=== PATIENT | male | born 1950 | race Caucasian/White ===

== ENCOUNTER 2017-10-17 21:10 | Inpatient (IN) | payer MEDICARE, OTHER ==
[~2017-10-17] VITALS: Ht 177.8 cm; Wt 86.2 kg
[~2017-10-17 21:10] MED LIST: ALBU1.25 NEB; ASPI-515 PO; ATOR40TA78 PO; AZIT500T PO; CEFD300C37 PO; DIGO250T PO; HALO5TAB5 PO; HYDR20TA PO; HYDR25SU3 PO; IPRA3AMP NPPB; LACT1CAP24 PO; MIDO5TAB PO; POLY17PO5 PO; POTA20TA6 PO; QUET25TA PO; RIVA10TA PO; RIVA15TA PO; SERT100T5 PO
[2017-10-17] MEDS ORDERED: ALBUTEROL/IPRATROPIUM 2.5MG/0.5MG, 3 ML ONE (21:41)
[2017-10-17 21:48] LABS: BASOPHILS # (AUTO) 0.01 x10^3/uL (0-0.1); BASOPHILS % (AUTO) 0 % (0-1); EOSINOPHILS # (AUTO) 0.29 x10^3/uL (0-0.4); EOSINOPHILS % (AUTO) 3 % (1-7); LYMPHOCYTES # (AUTO) 1.37 x10^3/uL (1-3.4); LYMPHOCYTES % (AUTO) 14 % (22-44); MD NO; MEAN CORPUSCULAR HEMOGLOBIN 31.3 pg (27.5-34.5); MEAN CORPUSCULAR HGB CONC 33.5 g/dL (33.2-36.2); MEAN CORPUSCULAR VOLUME 93.6 fL (81-97); MEAN PLATELET VOLUME 6.6 fL (7.4-10.4); MONOCYTES # (AUTO) 0.58 x10^3/uL (0.2-0.8); MONOCYTES % (AUTO) 6 % (2-9); NEUTROPHILS # (AUTO) 7.58 x10^3/uL (1.8-6.8); NEUTROPHILS % (AUTO) 77 % (42-75); PLATELET COUNT 323 x10^3/uL (130-400); RED BLOOD COUNT 2.89 x10^6/uL (4.38-5.82); RED CELL DISTRIBUTION WIDTH 18.5 % (9.4-14.8)
[2017-10-17 21:57] LABS: ALANINE AMINOTRANSFERASE 45 U/L (12-78); ALBUMIN 2.7 g/dL (3.4-5.0); ANION GAP 7 mmol/L (5-15); CALCIUM 7.7 mg/dL (8.5-10.1); CHLORIDE 104 mmol/L (98-107); CREATININE 0.58 mg/dL (0.7-1.3)
[2017-10-17] MEDS ORDERED: ATOR40TA78 PO (22:00)
[2017-10-17] MEDS ORDERED: IPRA4AER PO (22:00)
[2017-10-17] MEDS ORDERED: POTA10TA6 PO (22:00)
[2017-10-17] MEDS ORDERED: QUET25TA5 PO (22:00)
[2017-10-17] MEDS ORDERED: RIVA10TA PO (22:00)
[2017-10-17] MEDS ORDERED: POLY17PO5 PO (22:00)
[2017-10-17] MEDS ORDERED: ALBU0.63 NEB (22:00)
[2017-10-17] MEDS ORDERED: LACT1CAP24 PO (22:00)
[2017-10-17] MEDS ORDERED: MIDO10TA PO (22:00)
[2017-10-17] MEDS ORDERED: HYDROCORTISONE PO (22:00)
[2017-10-17] MEDS ORDERED: ACET325T14 PO (22:00)
[2017-10-17] MEDS ORDERED: TUBE5VIA3 TP (22:00)
[2017-10-17] MEDS ORDERED: OMEP-110 PO (22:00)
[2017-10-17] MEDS ORDERED: DIGO250T12 PO (22:00)
[2017-10-17] MEDS ORDERED: ASPI-515 PO (22:00)
[2017-10-17 22:01] LABS: ALKALINE PHOSPHATASE 85 U/L (45-117); TOTAL PROTEIN 6.6 g/dL (6.4-8.2); TROPONIN I 0.046 ng/mL (0.000-0.045)
[2017-10-17] MEDS ORDERED: PIPERACILLIN/TAZO/PMX 3.375GM 50 ML ONE (22:19)
[2017-10-17] MEDS ORDERED: ASPIRIN 81 MG TABLET CHEW ONE (22:19)
[2017-10-17] MEDS ORDERED: ASPIRIN 81 MG TABLET CHEW PO ONE (22:30)
[2017-10-17] MEDS ORDERED: PIPERACILLIN/TAZO/PMX 3.375GM 50 ML IVPB ONE (22:30)
[2017-10-17] MEDS ORDERED: VANCOMYCIN PER PHARMACY IV ONE (22:30)
[2017-10-17] MEDS ORDERED: VANCOMYCIN 1,800 MG in SODIUM CHLORIDE 0.9% 250 ML IV ONE (22:30)
[2017-10-17] MEDS ORDERED: ONDANSETRON 2MG/ML, 2ML IVPush PRN (23:30)
[2017-10-18] MEDS ORDERED: ONDANSETRON ODT 4 MG PO PRN (01:00)
[2017-10-18 01:30] VITALS: BP 114/76
[2017-10-18] MEDS ORDERED: ALBUTEROL/IPRATROPIUM 2.5MG/0.5MG, 3 ML NPPB PRN ×2 (01:30→02:00)
[2017-10-18] MEDS ORDERED: VANCOMYCIN PER PHARMACY MC PRN (01:30)
[2017-10-18] MEDS: MIDODRINE 5 MG TABLET PO SCH ×4 (01:42→19:33)
[2017-10-18] MEDS: PIPERACILLIN/TAZO/PMX 4.5GM 100 ML IV SCH ×3 (01:42→17:33)
[2017-10-18] MEDS: FUROSEMIDE 20 MG/2 ML IV SCH ×3 (01:47→17:33)
[2017-10-18] MEDS: methylPREDNISolone SOD SUCC 40 MG/ML IV SCH ×2 (01:47→12:14)
[2017-10-18 02:03] VITALS: BP 109/78
[2017-10-18 02:19] LABS: TROPONIN I 0.062 ng/mL (0.000-0.045)
[2017-10-18 04:00] VITALS: BP 104/74
[2017-10-18 04:33] LABS: BASOPHILS # (AUTO) 0.02 x10^3/uL (0-0.1); BASOPHILS % (AUTO) 0 % (0-1); EOSINOPHILS # (AUTO) 0.14 x10^3/uL (0-0.4); EOSINOPHILS % (AUTO) 2 % (1-7); LYMPHOCYTES % (AUTO) 11 % (22-44); MD NO; MEAN CORPUSCULAR HEMOGLOBIN 31.2 pg (27.5-34.5); MEAN CORPUSCULAR HGB CONC 33.1 g/dL (33.2-36.2); MEAN CORPUSCULAR VOLUME 94.2 fL (81-97); MEAN PLATELET VOLUME 6.9 fL (7.4-10.4); MONOCYTES # (AUTO) 0.37 x10^3/uL (0.2-0.8); MONOCYTES % (AUTO) 4 % (2-9); NEUTROPHILS # (AUTO) 8.25 x10^3/uL (1.8-6.8); NEUTROPHILS % (AUTO) 83 % (42-75); PLATELET COUNT 320 x10^3/uL (130-400); RED CELL DISTRIBUTION WIDTH 17.9 % (9.4-14.8)
[2017-10-18 04:40] LABS: ANION GAP 6 mmol/L (5-15); CHLORIDE 106 mmol/L (98-107)
[2017-10-18 04:45] LABS: CREATININE 0.61 mg/dL (0.7-1.3); TROPONIN I 0.052 ng/mL (0.000-0.045)
[2017-10-18] MEDS ORDERED: PHARMACOKINETIC MONITORING MC PRN (06:00)
[2017-10-18] MEDS ORDERED: PHARMACOKINETIC CONSULTATION MC ONE (06:00)
[2017-10-18] MEDS: ALBUTEROL/IPRATROPIUM 2.5MG/0.5MG, 3 ML NPPB SCH ×4 (06:53→20:04)
[2017-10-18] MEDS ORDERED: ALBUTEROL/IPRATROPIUM 2.5MG/0.5MG, 3 ML NPPB SCH (07:00)
[2017-10-18] MEDS: POTASSIUM CHLORIDE 10 MEQ TABLET.ER PO SCH (09:00)
[2017-10-18] MEDS: POLYETHYLENE GLYCOL 17 GM PACKET PO SCH (09:00)
[2017-10-18] MEDS: RIVAROXABAN 10 MG TABLET PO SCH ×2 (09:00→19:33)
[2017-10-18] MEDS ORDERED: OMEPRAZOLE 20 MG CAPSULE.DR PO SCH (09:00)
[2017-10-18] MEDS: DIGOXIN 0.25 MG TABLET PO SCH (09:00)
[2017-10-18] MEDS: FAMOTIDINE 20 MG/2 ML IVPush SCH ×2 (09:42→20:27)
[2017-10-18] MEDS: VANCOMYCIN 1,800 MG in SODIUM CHLORIDE 0.9% 250 ML IV SCH (16:07)
[2017-10-18] MEDS: ATORVASTATIN 40 MG TABLET PO SCH (19:33)
[2017-10-18] MEDS: morphine SULFATE 10 MG/ML, 1ML IVPush PRN (20:27)
[2017-10-18] MEDS: LORazepam 2 MG/ML, 1ML IVPush PRN (20:27)
[2017-10-19] MEDS: PIPERACILLIN/TAZO/PMX 4.5GM 100 ML IV SCH ×3 (00:59→17:55)
[2017-10-19] MEDS: methylPREDNISolone SOD SUCC 40 MG/ML IV SCH ×2 (00:59→12:06)
[2017-10-19 04:25] VITALS: BP 85/50
[2017-10-19 04:56] LABS: BASOPHILS # (AUTO) 0.01 x10^3/uL (0-0.1); BASOPHILS % (AUTO) 0 % (0-1); EOSINOPHILS % (AUTO) 0 % (1-7); LYMPHOCYTES # (AUTO) 0.79 x10^3/uL (1-3.4); LYMPHOCYTES % (AUTO) 9 % (22-44); MD NO; MEAN CORPUSCULAR HEMOGLOBIN 30.7 pg (27.5-34.5); MEAN CORPUSCULAR HGB CONC 32.9 g/dL (33.2-36.2); MEAN CORPUSCULAR VOLUME 93.3 fL (81-97); MEAN PLATELET VOLUME 7.1 fL (7.4-10.4); MONOCYTES # (AUTO) 0.31 x10^3/uL (0.2-0.8); MONOCYTES % (AUTO) 4 % (2-9); NEUTROPHILS # (AUTO) 7.74 x10^3/uL (1.8-6.8); NEUTROPHILS % (AUTO) 87 % (42-75); PLATELET COUNT 370 x10^3/uL (130-400); RED BLOOD COUNT 3.07 x10^6/uL (4.38-5.82); RED CELL DISTRIBUTION WIDTH 18.3 % (9.4-14.8)
[2017-10-19 05:07] LABS: ANION GAP 9 mmol/L (5-15); CALCIUM 8.2 mg/dL (8.5-10.1); CHLORIDE 105 mmol/L (98-107)
[2017-10-19 05:10] LABS: CREATININE 0.77 mg/dL (0.7-1.3)
[2017-10-19] MEDS: ALBUTEROL/IPRATROPIUM 2.5MG/0.5MG, 3 ML NPPB SCH ×4 (07:00→19:23)
[2017-10-19] MEDS: LORazepam 2 MG/ML, 1ML IVPush PRN ×2 (07:10→12:03)
[2017-10-19] MEDS: morphine SULFATE 10 MG/ML, 1ML IVPush PRN (07:10)
[2017-10-19] MEDS: RIVAROXABAN 10 MG TABLET PO SCH ×2 (08:35→21:06)
[2017-10-19] MEDS: POTASSIUM CHLORIDE 10 MEQ TABLET.ER PO SCH (08:36)
[2017-10-19] MEDS: DIGOXIN 0.25 MG TABLET PO SCH (08:36)
[2017-10-19] MEDS: MIDODRINE 5 MG TABLET PO SCH ×3 (08:36→21:05)
[2017-10-19] MEDS: POLYETHYLENE GLYCOL 17 GM PACKET PO SCH (08:36)
[2017-10-19] MEDS: FAMOTIDINE 20 MG/2 ML IVPush SCH ×2 (09:34→21:18)
[2017-10-19] MEDS: FUROSEMIDE 20 MG/2 ML IV SCH ×2 (09:34→17:55)
[2017-10-19] MEDS: VANCOMYCIN 1,800 MG in SODIUM CHLORIDE 0.9% 250 ML IV SCH (10:34)
[2017-10-19] MEDS ORDERED: MORPHINE SULFATE 4 MG/ML, 1ML ONE (15:22)
[2017-10-19] MEDS: MORPHINE SULFATE 4 MG/ML, 1ML IVPush PRN (15:25)
[2017-10-19] MEDS: VALPROATE SODIUM 500 MG in DEXTROSE 5% 100 ML IV SCH (16:02)
[2017-10-19] MEDS: ATORVASTATIN 40 MG TABLET PO SCH (21:05)
[2017-10-19] MEDS ORDERED: HALOPERIDOL 5 MG/ML IV PRN ×2 (22:00)
[2017-10-19] MEDS: HALOPERIDOL 5 MG/ML IV PRN (22:10)
[2017-10-20] MEDS: PIPERACILLIN/TAZO/PMX 4.5GM 100 ML IV SCH ×3 (01:14→17:10)
[2017-10-20] MEDS: methylPREDNISolone SOD SUCC 40 MG/ML IV SCH ×2 (01:14→12:40)
[2017-10-20 03:43] LABS: ALBUMIN 2.5 g/dL (3.4-5.0); ANION GAP 8 mmol/L (5-15); CALCIUM 7.9 mg/dL (8.5-10.1); CHLORIDE 101 mmol/L (98-107)
[2017-10-20 03:46] LABS: ALANINE AMINOTRANSFERASE 31 U/L (12-78); ALKALINE PHOSPHATASE 70 U/L (45-117); BILIRUBIN,TOTAL 1.1 mg/dL (0.2-1.0); CREATININE 0.65 mg/dL (0.7-1.3); TOTAL PROTEIN 6.4 g/dL (6.4-8.2); VANCOMYCIN,TROUGH 15.7 mcg/mL (5.0-10.0)
[2017-10-20] MEDS: VALPROATE SODIUM 500 MG in DEXTROSE 5% 100 ML IV SCH ×2 (04:30→16:10)
[2017-10-20 04:58] VITALS: BP 84/63
[2017-10-20 05:41] LABS: BASOPHILS % (AUTO) 0 % (0-1); EOSINOPHILS % (AUTO) 0 % (1-7); LYMPHOCYTES # (AUTO) 0.91 x10^3/uL (1-3.4); LYMPHOCYTES % (AUTO) 11 % (22-44); MD NO; MEAN CORPUSCULAR HEMOGLOBIN 31.4 pg (27.5-34.5); MEAN CORPUSCULAR VOLUME 95.3 fL (81-97); MONOCYTES # (AUTO) 0.35 x10^3/uL (0.2-0.8); MONOCYTES % (AUTO) 4 % (2-9); NEUTROPHILS # (AUTO) 7.01 x10^3/uL (1.8-6.8); NEUTROPHILS % (AUTO) 85 % (42-75); PLATELET COUNT 324 x10^3/uL (130-400); RED BLOOD COUNT 2.78 x10^6/uL (4.38-5.82); RED CELL DISTRIBUTION WIDTH 18.7 % (9.4-14.8)
[2017-10-20] MEDS: VANCOMYCIN 1,800 MG in SODIUM CHLORIDE 0.9% 250 ML IV SCH ×2 (05:53→22:21)
[2017-10-20] MEDS: ALBUTEROL/IPRATROPIUM 2.5MG/0.5MG, 3 ML NPPB SCH ×4 (07:00→20:00)
[2017-10-20] MEDS: FUROSEMIDE 20 MG/2 ML IV SCH ×2 (08:13→17:10)
[2017-10-20] MEDS: POLYETHYLENE GLYCOL 17 GM PACKET PO SCH (09:00)
[2017-10-20] MEDS: POTASSIUM CHLORIDE 10 MEQ TABLET.ER PO SCH (09:00)
[2017-10-20] MEDS: MIDODRINE 5 MG TABLET PO SCH ×3 (09:00→21:05)
[2017-10-20] MEDS: RIVAROXABAN 10 MG TABLET PO SCH ×2 (09:00→21:05)
[2017-10-20] MEDS: FAMOTIDINE 20 MG/2 ML IVPush SCH ×2 (09:00→21:27)
[2017-10-20] MEDS: DIGOXIN 0.25 MG TABLET PO SCH (09:00)
[2017-10-20] MEDS: HALOPERIDOL 5 MG/ML IV PRN ×3 (10:57→23:08)
[2017-10-20] MEDS: ATORVASTATIN 40 MG TABLET PO SCH (21:05)
[2017-10-21] MEDS: methylPREDNISolone SOD SUCC 40 MG/ML IV SCH ×2 (00:33→12:30)
[2017-10-21] MEDS: PIPERACILLIN/TAZO/PMX 4.5GM 100 ML IV SCH ×2 (01:32→10:02)
[2017-10-21] MEDS: LORazepam 2 MG/ML, 1ML IVPush PRN ×3 (01:35→22:42)
[2017-10-21] MEDS: MORPHINE SULFATE 4 MG/ML, 1ML IVPush PRN ×3 (02:10→22:42)
[2017-10-21 04:00] VITALS: BP 102/56
[2017-10-21] MEDS: VALPROATE SODIUM 500 MG in DEXTROSE 5% 100 ML IV SCH (04:15)
[2017-10-21 04:21] LABS: BASOPHILS # (AUTO) 0.03 x10^3/uL (0-0.1); BASOPHILS % (AUTO) 0 % (0-1); EOSINOPHILS % (AUTO) 0 % (1-7); LYMPHOCYTES # (AUTO) 0.72 x10^3/uL (1-3.4); LYMPHOCYTES % (AUTO) 11 % (22-44); MD NO; MEAN CORPUSCULAR HEMOGLOBIN 31.4 pg (27.5-34.5); MEAN CORPUSCULAR HGB CONC 33.5 g/dL (33.2-36.2); MEAN CORPUSCULAR VOLUME 93.5 fL (81-97); MEAN PLATELET VOLUME 7.2 fL (7.4-10.4); MONOCYTES # (AUTO) 0.35 x10^3/uL (0.2-0.8); MONOCYTES % (AUTO) 5 % (2-9); NEUTROPHILS # (AUTO) 5.62 x10^3/uL (1.8-6.8); NEUTROPHILS % (AUTO) 84 % (42-75); PLATELET COUNT 310 x10^3/uL (130-400); RED BLOOD COUNT 2.97 x10^6/uL (4.38-5.82); RED CELL DISTRIBUTION WIDTH 17.7 % (9.4-14.8)
[2017-10-21 04:29] LABS: ALANINE AMINOTRANSFERASE 32 U/L (12-78); ALBUMIN 2.6 g/dL (3.4-5.0); ANION GAP 6 mmol/L (5-15); CALCIUM 7.8 mg/dL (8.5-10.1); CHLORIDE 104 mmol/L (98-107); CREATININE 0.63 mg/dL (0.7-1.3)
[2017-10-21 04:31] LABS: ALKALINE PHOSPHATASE 71 U/L (45-117); BILIRUBIN,TOTAL 0.9 mg/dL (0.2-1.0); TOTAL PROTEIN 6.3 g/dL (6.4-8.2)
[2017-10-21] MEDS: FUROSEMIDE 20 MG/2 ML IV SCH (07:30)
[2017-10-21] MEDS: ALBUTEROL/IPRATROPIUM 2.5MG/0.5MG, 3 ML NPPB SCH (08:07)
[2017-10-21] MEDS: DIGOXIN 0.25 MG TABLET PO SCH (08:47)
[2017-10-21] MEDS: POTASSIUM CHLORIDE 10 MEQ TABLET.ER PO SCH (08:47)
[2017-10-21] MEDS: POLYETHYLENE GLYCOL 17 GM PACKET PO SCH (08:48)
[2017-10-21] MEDS: RIVAROXABAN 10 MG TABLET PO SCH (08:48)
[2017-10-21] MEDS: MIDODRINE 5 MG TABLET PO SCH ×2 (08:48→08:52)
[2017-10-21] MEDS: FAMOTIDINE 20 MG/2 ML IVPush SCH (09:00)
[2017-10-21] MEDS: HALOPERIDOL 5 MG/ML IV PRN (10:23)
[2017-10-21] MEDS ORDERED: MORPHINE SULFATE 4 MG/ML, 1ML IVPush PRN (12:00)
[2017-10-21] MEDS: SCOPOLAMINE PATCH, 1.5MG PATCH.TD72 TD SCH (14:31)
[2017-10-22] MEDS: MORPHINE SULFATE 4 MG/ML, 1ML IVPush PRN ×3 (05:46→23:17)
[2017-10-22] MEDS: LORazepam 2 MG/ML, 1ML IVPush PRN ×4 (05:46→22:00)
[2017-10-23] MEDS: MORPHINE SULFATE 4 MG/ML, 1ML IVPush PRN ×3 (03:36→20:08)
[2017-10-23] MEDS: LORazepam 2 MG/ML, 1ML IVPush PRN ×3 (08:33→19:56)
[2017-10-24] MEDS: MORPHINE SULFATE 4 MG/ML, 1ML IVPush PRN ×2 (00:13→10:00)
[2017-10-24] MEDS: LORazepam 2 MG/ML, 1ML IVPush PRN ×4 (00:13→16:26)
[2017-10-24] MEDS: SCOPOLAMINE PATCH, 1.5MG PATCH.TD72 TD SCH (13:00)
== END 2017-10-24 17:55 | disposition expired ==
LOC: MERGE 21:10 → ED 23:21 → EDIP 23:38 → CCU 10-18 01:20 → 3NW 10-21 14:19
PROVIDERS: ADMIT Internal Medicine; ATTEND Internal Medicine
DX: I21.4 Non-ST elevation (NSTEMI) myocardial infarction (principal); J96.21 Acute and chronic respiratory failure with hypoxia; J69.0 Pneumonitis due to inhalation of food and vomit; I50.23 Acute on chronic systolic (congestive) heart failure; G93.41 Metabolic encephalopathy; J15.9 Unspecified bacterial pneumonia; I95.9 Hypotension, unspecified; E27.40 Unspecified adrenocortical insufficiency; I27.20 Pulmonary hypertension, unspecified; I11.0 Hypertensive heart disease with heart failure; I48.2 Chronic atrial fibrillation; I21.9 Acute myocardial infarction, unspecified; E86.0 Dehydration; D63.8 Anemia in other chronic diseases classified elsewhere; E78.5 Hyperlipidemia, unspecified; G31.84 Mild cognitive impairment of uncertain or unknown etiology; F31.9 Bipolar disorder, unspecified; F09 Unspecified mental disorder due to known physiological condition; I25.10 Atherosclerotic heart disease of native coronary artery without angina pectoris; J84.112 Idiopathic pulmonary fibrosis; Z51.5 Encounter for palliative care; Z79.01 Long term (current) use of anticoagulants; Z79.52 Long term (current) use of systemic steroids; Z79.82 Long term (current) use of aspirin; Z86.718 Personal history of other venous thrombosis and embolism; Z86.74 Personal history of sudden cardiac arrest; Z87.891 Personal history of nicotine dependence; Z95.1 Presence of aortocoronary bypass graft; Z79.899 Other long term (current) drug therapy
CPT/HCPCS: 36415; 36600; 71045; 80048; 80053; 80162; 80164; 80202; 82803; 83605; 83735; 83880; 84145; 84484; 85025; 86480; 87015; 87040; 87070; 87081; 87116; 87205; 87206; 93005; 94640; 96365; 96366; 96375; J2270; J2543; J3370; J7620; 92523-GN; J1630; J1940; J2060; J2920; J7050; S0028